=== PATIENT | male | born 1965 | race Caucasian/White ===

== ENCOUNTER → 2016-10-10 | Emergency (ER) | payer OTHER ==
[~2016-10-10] MED LIST: MECLIZINE HCL 25 MG TAB PO ONE
--- NOTE | 2016-10-10 14:07 | UCPHY ---
H & P Time Seen by Provider: 10/10/16 13:49 Patient Type: Established HPI/ROS: HPI Dizziness. 51-year-old male by private vehicle with significant other. He reports he has felt vertigo worse with head movement standing since Saturday. He reports recent history of influenza and upper respiratory infection. No changes in hearing. Mild intermittent gradual onset dull posterior headache. Denies this now. States that symptoms are not worse in the morning. No fever. No neck pain. No history of traumatic injury. No other complaint. ROS: Constitutional: No fever, no chills. No weakness. As above. Eyes: No discharge. No changes in vision. ENT: No sore throat. No nasal congestion or rhinorrhea. Respiratory: No cough. No shortness of breath. Cardiac: No chest pain, no palpitations. Gastrointestinal: No abdominal pain, no vomiting, no diarrhea. Genitourinary: No hematuria. No dysuria or increased frequency with urination. Musculoskeletal: No back pain. No neck pain. No myalgias or arthralgias. Skin: No rashes. Neurological: As above. No focal weakness or altered sensation. Past medical history: Back problems. Social history: Here with significant other. Denies alcohol. Physical Exam: General Appearance: Alert, no distress. This patient is responding to questions appropriately and in full sentences. This patient appears well- hydrated and well-nourished. Eyes: Pupils equal and round no pallor or injection. No lid edema, erythema or injection. Horizontal, mild Uni directional nystagmus. ENT, Mouth: Mucous membranes are moist. The pharyngeal tissues are unremarkable. No edema or swelling. No asymmetry suggestive of abscess. No erythema or exudates. External auditory canals and tympanic membranes are clear bilaterally. Respiratory: There are no retractions, lungs are clear to auscultation with good air movement bilaterally. Cardiovascular: Regular rate and rhythm. No murmur. Gastrointestinal: Abdomen is soft and nontender, no masses, bowel sounds normal. No focal tenderness at McBurney's point. No Shoemaker sign. Neurological: Motor sensory function is grossly intact. Cranial nerves are normal. Gait is normal. Weakly positive head impulse test with catch-up saccades Skin: Warm and dry, no rashes. Musculoskeletal: Neck is supple and nontender. Extremities are symmetrical. All joints range without pain or impingement. Psychiatric: No agitation. No depression. Database: EKG: Imaging: Procedures: Emergency department course: Patient presentation is consistent with a peripheral etiology of vertigo. Likely mild labyrinthitis. Patient given 25 mg of oral Antivert. 2:30 p.m., patient re-evaluated. He states that he is feeling better at this time. He has been up in ambulatory with a normal gait. He feels comfortable going home and I feel he is safe for discharge. Follow-up and return to emergency department/urgent care precautions reviewed with him. If his symptoms have not resolved in 2 days he is to return for re-evaluation. He is in agreement with this plan. All of his questions were answered. He was discharged in good condition. Differential Diagnosis: The differential diagnosis on this patient includes but is not limited to acute vestibular neuritis, benign positional vertigo. CVA, intracranial mass, other central etiology of vertigo unlikely. This represents a partial list of diagnoses considered. These considerations are based on history, physical exam , past history and reassessment. Smoking Status: Current every day smoker Constitutional: Initial Vital Signs Temperature (C) 37.1 C 10/10/16 14:05 Heart Rate 88 10/10/16 14:05 Respiratory Rate 16 10/10/16 14:05 Blood Pressure 155/94 H 10/10/16 14:05 O2 Sat (%) 96 10/10/16 14:05 O2 Delivery Mode Room Air Allergies/Adverse Reactions: No Known Allergies Allergy (Verified 04/06/16 18:15) Home Medications: Medication Instructions Recorded Hydrocod/APAP 7.5/325 in 15Ml 10/10/16 Meclizine HCl [ANTIVERT] 25 mg PO Q6 PRN #10 tab 10/10/16 Medical Decision Making - Data Points Medications Given: Discontinued Medications Meclizine HCl (Meclizine Hcl) 25 mg PO EDNOW ONE Stop: 10/10/16 14:05 Last Admin: 10/10/16 14:30 Dose: 25 mg Departure - Departure Disposition: Home, Routine, Self-Care Clinical Impression: Vertigo Condition: Good Instructions: Vertigo (ED) Additional Instructions: Read and follow provided instructions. Follow-up with your primary care physician in two days for reevaluation or return to the urgent care for reevaluation in two days if your symptoms are still present. Take medication as prescribed. Return to the emergency department immediately for worsening vertigo, visual changes, vomiting, headache or other serious concerns. Referrals: NONE *PRIMARY CARE P,. [Primary Care Provider] - As per Instructions Prescriptions: Meclizine HCl [ANTIVERT] 25 mg PO Q6 PRN #10 tab PRN Reason: Dizziness - PQRS PQRS Measurement: 134: Depression screening and followup, PRIME MD-PHQ2 (12 years and older) Over the last 2 weeks, how often have you been bothered by any of the following problems? 1. Feeling down, depressed, or hopeless? 2. Little interest or pleasure in doing things? Answered no to both questions. 130: Documentation of medications. Reviewed all patient medications, doses, route and frequency. 226: Do you smoke? No. 47: 65 and older: Advanced care planning. Patient designates surrogate decision maker as family. 51: 18 years old and older with diagnosis of COPD, spirometry performance. NA 52: 18 years old and older with COPD and symptoms of COPD or FEV1<60% predicted prescribed a B Agonist. NA
[2016-10-10 15:08] VITALS: BP 124/66; PULSE 78; RESP 18; TEMP 98; O2SAT 97
== END | disposition home or self-care (01) ==
LOC: CED 13:36
DX: R42 Dizziness and giddiness (principal); F17.200 Nicotine dependence, unspecified, uncomplicated
CPT/HCPCS: G0463-PO